=== PATIENT | female | born 1995 | race Two or more races ===

== ENCOUNTER 2025-07-11 13:22 | Outpatient (AMB) | payer MEDICAID, SELFPAY ==
--- NOTE | 2025-07-11 13:31 | AMB.OBINITIA ---
Vital Signs 07/11/25 13:32 Height 1.7 m Height Method Stated Weight 82.27 kg Weight Measurement Method Standing Scale BMI 28.4 BP 107/54 L Blood Pressure Source Automatic Cuff Blood Pressure Location Left Upper Arm Position Sitting Respiration 18 Pulse 77 Pulse Source Monitor Temp 97.2 F Temp Source Oral Pulse Oximetry (%) 98 Oxygen Delivery Method Room Air Allergies/Home Meds Allergies & Medications Allergies No Known Allergies Allergy (Verified 07/11/25 13:35) Medication Reconciliation vitamins-iron fumarate 27 mg iron-folic acid 0.8 mg tablet ( Vitamin) 1 tab PO QDAY 12/23/18 [History Confirmed 07/11/25] pyridoxine (vitamin B6) 25 mg tablet (Vitamin B-6) 25 mg PO QDAY 12/23/18 [History Confirmed 07/11/25] ibuprofen 800 mg tablet 800 mg PO TID PRN pain #30 tabs 01/26/21 [Rx Confirmed 07/11/25] Intake Visit Data Collection New Patient or Established: Established Patient (seen at [facility] within 3 years) Reason for Visit:: OBI Seen by Clinical Staff ONLY (RN/MA): No 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: No Do You Feel Safe at Home: Yes Authorities Contacted: N/A PCP or OBGYN visit in last 3 months: Yes Date of Last PCP or OBGYN visit: 06/02/25 Hx Now: Yes Are you currently on any form of Control: No Last menstrual period: 04/12/25 Pain Present Currently: No Pain Scale Used: Banuelos-Munoz/Numerical Pain scale:: 0 Smoking Status Smoking Status: Unknown if ever smoked Questionnaires Covid-19 Vaccine Questionnaire Has patient been vacinated for Covid-19 Have you been vacinated for Covid-19: Yes PHQ-9 PHQ-2 Over the last 2 weeks, how often have you been bothered by any of the following problems? 1. Little interest or pleasure in doing things: not at all 2. Feeling down, depressed, or hopeless: not at all Total score: 0 PHQ-9 3. Trouble falling or staying asleep, or sleeping too much: Not at all 4. Feeling tired or having little energy: Not at all 5. Poor appetite or overeating: Not at all 6. Feeling bad about yourself - or that you are a failure or have let yourself or your family down: Not at all 7. Trouble concentrating on things, such as reading the newspaper or watching television: Not at all 8. Moving or speaking so slowly that other people could have noticed? - Or the opposite - being so fidgety or restless that you have been moving around a lot more than usual: not at all 9. Thoughts that you would be better off or of hurting yourself in some way: Not at all Total score: 0 If you checked off any problems, how difficult have these problems made it for you to do your work, take care of things at home, or get along with other people?: not difficult at all Source: Developed by Drs. Eric Saldivar, Alona Diaz, Cheo Guerrero and colleagues, with an educational claudia from [employer]. Depression screen completed yes Social History Living Situation History Marital Status: Single Lives With: Family Housing: House Tobacco History Smoking Status: Unknown if ever smoked Packs per Day: 2 Second Hand Smoke Exposure: Yes Alcohol History Alcohol Intake: Current (social) Substance Use History Substance Use: MARIJUANA Domestic Abuse History Do You Feel Safe at Home: Yes History of Present Illness HPI Narrative ?30 Years old G3P?2at gestational age? 12.6 based on last menstrual period of dated 04/12/2025. 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 Medical History Past Medical History: No Hx Neurological Disorders, No Hx Breast Cancer, No Hx Cardiac Disorders, No Hx Blood Disorders, No Hx Gastrointestinal Disorders, No Hx Renal Disease, No Hx Diabetes Mellitus Type 1 and No Hx Diabetes Mellitus Type 2 OB Initial Visit OB Flowsheet OB Flowsheet Initial Weight: Not Recorded Date <del>?</del> EGA Weight BP Alb Glu CTX Pres Fundal ht FHR Mov Dilation Station Effacement Hx Notes Visit Note 07/11/25 <del>?</del> 12w 6d 82.27 kg 107/54 13 144 active 0 OBI previous one c section and 1 interested in this time as well Menstrual History Menstrual reliability: definite Flow: normal Menstrual regularity: regular Monthly: Yes Age at menarche: 10 On control pills at conception: No OB History : 3 Para: 2 Hx # Pregnancies: 0 Hx Total # of Abortions (Spontaneous & Elective): 0 # of Living Children: 2 Delivery History 1st : Child's name: POLLO TABARES date: 12/29/18 sex: female Gestational age at delivery (weeks): 38 Delivery type: Delivery complications: PLACENTA ABRUCTION History of depression before or after : No 2nd : Child's name: AMI TABARES date: 09/01/23 sex: female Gestational age at delivery (weeks): 38 Delivery type: vaginal History of depression before or after : No Infection History & Risk Evaluation History of STDs: none HIV risk evaluation: low risk Hepatitis B risk evaluation: low risk Patient or partner has history of Genital Herpes: No Varicella/chicken pox status: immunized Genetic Screening & History Genetic Screening/Teratology Counseling - Includes patient, baby's father, or anyone in either family with: 1. Patient's age 35 years or older as of estimated date of delivery: No 2. Thalassemia (Kyrgyz, Cypriot, Mediterranean, or Background); MCV less than 80: No 3. Neural Tube Defect (Meningomyelocele, Spina Bifida, or Anencephaly): No 4. Congenital Heart Defect: No 5. Down Syndrome: No 6. German-Sachs (Ashkenazi Spiritism, Cajun, [place]an [place]): No 7. Abdi Disease (Ashkenazi Spiritism): No 8. Familial Dysautonomia (Ashkenazi Spiritism): No 9. Sickle Cell Disease or Trait (): No 10. Hemophilia or other blood disorders: No 11. Muscular Dystrophy: No 12. Cystic Fibrosis: No 13. [place]'s Chorea: No 14. Mental Retardation/Autism: No 15. Other inherited genetic or chromosomal disorder: No 16. Maternal Metabolic Disorder (EG,TYPE 1 Diabetes, PKU): No 17. Patient or baby's father had a child with defects not listed above: No 18. Recurrent loss or a stillbirth: No 19. Medications (including supplements, vitamins, herbs or otc drugs)/illicit/recreational drugs/alcohol since last menstrual period: No 20. Any other: No Infection History 1. Live with someone with TB or exposed to TB: No 2. Rash or viral illness since last menstrual period: No 3. Hepatitis B,C: No Other (see comments) Source: [employer] Review of Systems Review of Systems Systems Reviewed: All systems reviewed, normal except as documented Exam Narrative Physical exam: Alert and oriented x 3 no shortness of breath Pain no chest pain no palpitations Chest clear bilaterally no additional sounds, no wheezing no rales CVS regular rate and rhythm No CVAT Abdomen nontender, normal bowel sounds No guarding no rigidity No hernias pelvic exam and patient has a 12 week US and pap smear was done Cervix closed and no lesion or bleeding or discharge Results Objective Imaging: dates c/w bedside US Office Procedures OBC Clinic LOC & Office Proc's Nursing/Assessment Patient Status: Established Patient OB Clinic Nursing Assessment: Medication Reconciliation, Update PMH in EMR and Vital Signs OB Clinic Coordination of Care: Consent,records obtained, informed consent, Education Simp Pt/Fam, Lab and Imaging orders, Results/Orders obtained and Staff clarify orders Special Needs: Heart tones Established Patient Charge Established Patient Point Assignment: 110 Established Patient Point Charge: EP Level 3 (80-115) Assessment & Plan Diagnosis / Problem List (1) : Status: Acute (2) Previous delivery affecting , antepartum: Status: Acute Plan Assessment IUP at 12.6 gestation al age in a 30 years old G3 P 2 additional diagnoses previous c section wants TOLAC / Plan labs / NIPT and Carrier testing refer at next visit for anatomy scan education/counselling [facility] does not qualify for medications taking PNV and does not need any more at present immunization in intake Follow up 4 weeks Additional Plan Follow Up: 4 Weeks
[2025-07-11 13:32] VITALS: BP 107/54; PULSE 77; RESP 18; TEMP 36.2; O2SAT 98; BMI 28.4
== END 2025-07-11 14:29 | disposition home or self-care (01) ==
LOC: HODSOBC 13:22
PROVIDERS: PCP Family Medicine; Referring Provider Family Medicine; Supervising Provider Obstetrics & Gynecology; Visit Provider Obstetrics & Gynecology
DX: O09.291 Supervision of pregnancy with other poor reproductive or obstetric history, first trimester (principal); Z3A.12 12 weeks gestation of pregnancy; O34.219 Maternal care for unspecified type scar from previous cesarean delivery
CPT/HCPCS: 99213; G0463

== ENCOUNTER 2025-08-15 14:44 | Outpatient (AMB) | payer MEDICAID, SELFPAY ==
[2025-08-15 15:22] VITALS: BP 109/63; PULSE 72; RESP 18; TEMP 36.6; O2SAT 98; BMI 28.1
--- NOTE | 2025-08-15 15:22 | OBCLNT_ITS ---
Vital Signs 08/15/25 15:22 Height 1.7 m Height Method Stated Weight 81.363 kg Weight Measurement Method Standing Scale BMI 28.1 BP 109/63 Blood Pressure Source Automatic Cuff Blood Pressure Location Right Upper Arm Position Sitting Respiration 18 Pulse 72 Pulse Source Monitor Temp 97.8 F Temp Source Temporal Artery Scan Pulse Oximetry (%) 98 Oxygen Delivery Method Room Air Allergies/Home Meds Allergies & Medications Allergies No Known Allergies Allergy (Verified 08/15/25 15:22) Medication Reconciliation vitamins-iron fumarate 27 mg iron-folic acid 0.8 mg tablet ( Vitamin) 1 tab PO QDAY 12/23/18 [History Confirmed 08/15/25] pyridoxine (vitamin B6) 25 mg tablet (Vitamin B-6) 25 mg PO QDAY 12/23/18 [History Confirmed 08/15/25] ibuprofen 800 mg tablet 800 mg PO TID PRN pain #30 tabs 01/26/21 [Rx Confirmed 08/15/25] Immunizations Immunizations Flu Vaccine in the Last 12 Months: No Flu Vaccine Exclusion Criteria: No Exclusion Criteria Care OB Visit Log OB Flowsheet Initial Weight: Not Recorded Date -?-?-?-?-?-?-?-?-?-?-?-?- EGA Weight BP Alb Glu CTX Pres Fundal ht FHR Mov Dilation Station Effacement Hx Notes Visit Note 07/11/25 -?-?-?-?-?-?-?-?-?-?-?-?- 12w 6d 82.27 kg 107/54 13 144 active 0 OBI previous one c section and 1 intere sted in this time as well 08/15/25 -?-?-?-?-?-?-?-?-?-?-?-?- 17w 6d 81.363 kg 109/63 18 150 active PHIL Calculator Estimated Delivery Date Method Current WG Current Estimate 01/17/26 LMP (Certain) 18w 0d Other Estimates 01/13/26 Ultrasound #1 18w 4d Notes Visit Date: 08/15/25 Last Updated by: Valencia White MD and previous c section at 17.6 weeks today / AFP ordered /Patient clearly informed that [facility] does not offer Tolac/ Plan MSAFP today She is B positive / rest of the labs are normal / follow up in 4 weeks refer to [facility] for Depression counselling Visit Date: 07/11/25 Last Updated by: Valencia White MD states she is 13 weeks today and by bedside US she is 13.3 weeks by BPD / NIPT and also carrier screening and labs ordered taking PNVitamins / Pap smear done today [facility] does not do TOLAC . Patient informed Office Procedures OBC Clinic LOC & Office Proc's Nursing/Assessment Patient Status: Established Patient OB Clinic Nursing Assessment: Medication Reconciliation, Update PMH in EMR and Vital Signs OB Clinic Coordination of Care: Complex Care and Chronic Disease 1-5, Education Complex Pt/Fam, Consent,records obtained, informed consent, Lab and Imaging orders, Results/Orders obtained and Staff clarify orders Special Needs: Heart tones Established Patient Charge Established Patient Point Assignment: 140 Established Patient Point Charge: EP Level 4 (120-155) Assessment & Plan Diagnosis / Problem List (1) : Status: Acute Qualifiers: Weeks of gestation: 17 weeks Qualified Code(s): Z3A.17 - 17 weeks gesta tion of (2) Previous delivery affecting , antepartum: Status: Acute (3) Depression: Status: Acute Qualifiers: Depression Type: unspecified Qualified Code(s): F32.A - Depression, unspecified Plan HISTORY OF PRESENT ILLNESS AI Consent obtained: I, Dr. White, have obtained verbal consent from the patient, to be recorded during this encounter which may include, but not limited to, medical history, examination, treatment plans, and relevant health information. Patient was informed that recording will be read and reviewed by myself before inclusion in the medical chart. Recordings will be maintained in accordance with State and Federal law and only for a limited period of time for validation purposes, then destroyed and not retained. The patient presents for evaluation of . She has a history of 2 previous pregnancies, the first of which was delivered via section, while the second was a vaginal after () that occurred in [place]. She has expressed interest in knowing the gender of her current , which has been confirmed as male through [facility] results. She has also completed her lab tests at [facility]. She is not currently taking any vitamins. Additionally, she reports experiencing symptoms of depression and anxiety. PHYSICAL EXAM Vital Signs: heart rate: 150 bpm Obstetric: Fundal height consistent with gestational age, heart tones present RESULTS Labs - Gender screening test: Indicates a boy ASSESSMENT AND PLAN 1. : - The heart rate is 150 bpm, indicating satisfactory growth. - A second trimester AFP test and US test will be ordered to assess the anatomy of the fetus. - She has been informed that this facility does not perform VBACs due to the lack of in-house anesthesia and OBGYN services. - A referral for an anatomy scan will be made to either [facility] or [facility], depending on insurance approval. She has been advised to consider receiving the influenza vaccine during this flu season. 2. Depression and anxiety: - She reports experiencing depression and anxiety, which may be related to homeschooling and caring for her child. - A referral for counseling will be made to address these concerns. Follow-up: The patient will follow up in 4 weeks.
== END 2025-08-15 15:54 | disposition home or self-care (01) ==
LOC: HODSOBC 14:44
PROVIDERS: Supervising Provider Obstetrics & Gynecology; Visit Provider Obstetrics & Gynecology
DX: O09.292 Supervision of pregnancy with other poor reproductive or obstetric history, second trimester (principal); O34.219 Maternal care for unspecified type scar from previous cesarean delivery; O09.892 Supervision of other high risk pregnancies, second trimester; O99.342 Other mental disorders complicating pregnancy, second trimester; F32.A Depression, unspecified; F41.9 Anxiety disorder, unspecified; Z3A.17 17 weeks gestation of pregnancy
CPT/HCPCS: 99214; G0463